=== PATIENT | female | born 1930 | race Native Hawaiian/Other Pacific Islander ===

== ENCOUNTER 2016-05-14 08:16 | Outpatient (CLI) | payer OTHER ==
[2016-05-14 09:35] LABS: POTASSIUM 3.9 mmol/L (3.6-5.2)
== END 2016-05-14 19:21 | disposition home or self-care (01) ==
LOC: LABW 08:16
PROVIDERS: Internal Medicine Cardiovascular Disease
DX: E78.4 Other hyperlipidemia (principal); Z79.899 Other long term (current) drug therapy; Z51.81 Encounter for therapeutic drug level monitoring
CPT/HCPCS: 36415; 80053; 80061

== ENCOUNTER 2017-03-26 08:07 | Outpatient (CLI) | payer OTHER | END 2017-03-26 10:10 | disposition home or self-care (01) | LOC: RESP 08:07 | DX: I10 Essential (primary) hypertension (principal); Z13.6 Encounter for screening for cardiovascular disorders | CPT/HCPCS: 93306 ==

== ENCOUNTER 2017-09-23 08:42 | Outpatient (CLI) | payer OTHER | END 2017-09-23 21:19 | disposition home or self-care (01) | LOC: LABW 08:42 | PROVIDERS: Internal Medicine Cardiovascular Disease | DX: R06.09 Other forms of dyspnea (principal); Z79.899 Other long term (current) drug therapy; Z51.81 Encounter for therapeutic drug level monitoring | CPT/HCPCS: 36415; 80048; 83880 ==

== ENCOUNTER 2017-10-24 10:04 | Outpatient (CLI) | payer OTHER | END 2017-10-24 19:29 | disposition home or self-care (01) | LOC: RAD 10:04 | DX: M54.2 Cervicalgia (principal); M25.511 Pain in right shoulder ==

== ENCOUNTER 2017-11-21 08:51 | Outpatient (CLI) | payer OTHER | END 2017-11-21 21:17 | disposition home or self-care (01) | LOC: LABW 08:51 | PROVIDERS: Internal Medicine Cardiovascular Disease | DX: E78.4 Other hyperlipidemia (principal) | CPT/HCPCS: 36415; 80061 ==

== ENCOUNTER 2018-03-14 15:15 | Emergency (ER) | payer OTHER ==
[~2018-03-14] VITALS: Ht 162.6 cm; Wt 79.8 kg
[2018-03-14 15:40] VITALS: BP 201/85; TEMP 98.7
== END 2018-03-14 17:30 | disposition home or self-care (01) ==
LOC: ED 15:15
PROC: 3E1CX8Z Irrigation of Eye using Irrigating Substance (ICD-10-PCS; principal; 2018-03-14)
DX: T15.91XA Foreign body on external eye, part unspecified, right eye, initial encounter (principal)
CPT/HCPCS: 99283

== ENCOUNTER 2018-05-08 23:46 | Outpatient (CLI) | payer OTHER ==
[2018-05-09] MEDS ORDERED: OMEPRAZOLE20 M2 PO (00:20)
[2018-05-09] MEDS ORDERED: MOBIC7.5 M1 PO (00:20)
[2018-05-09] MEDS ORDERED: SIMV20TA2 PO (00:21)
[2018-05-09] MEDS ORDERED: HYDR25TA60 PO (00:21)
[2018-05-09] MEDS ORDERED: ENALAPRIL20 MG PO (00:22)
[2018-05-09] MEDS ORDERED: METFTAB PO (00:22)
[2018-05-09] MEDS ORDERED: EC-81 ASPIRIN81 MG PO (00:23)
[2018-05-09] MEDS ORDERED: FORMULA E400 UNIT PO (00:31)
== END 2018-05-09 00:05 | disposition short-term general hospital (02) ==
LOC: AMB 23:46
DX: R07.89 Other chest pain (principal)
CPT/HCPCS: A0425; A0427

== ENCOUNTER 2018-05-09 00:07 | Emergency (ER) | payer OTHER ==
[~2018-05-09] VITALS: Ht 162.6 cm; Wt 76.2 kg
[2018-05-09] MEDS ORDERED: OMEPRAZOLE20 M2 PO (00:20)
[2018-05-09] MEDS ORDERED: MOBIC7.5 M1 PO (00:20)
[2018-05-09] MEDS ORDERED: SIMV20TA2 PO (00:21)
[2018-05-09] MEDS ORDERED: HYDR25TA60 PO (00:21)
[2018-05-09] MEDS ORDERED: METFTAB PO (00:22)
[2018-05-09] MEDS ORDERED: ENALAPRIL20 MG PO (00:22)
[2018-05-09] MEDS ORDERED: EC-81 ASPIRIN81 MG PO (00:23)
[2018-05-09] MEDS ORDERED: FORMULA E400 UNIT PO (00:31)
[2018-05-09 00:54] LABS: PLATELET COUNT 264 K/uL (152-353)
[2018-05-09 00:59] LABS: POTASSIUM 3.2 mmol/L (3.6-5.2); SODIUM 140 mmol/L (136-145)
[2018-05-09 04:02] VITALS: BP 102/50; TEMP 98.2
== END 2018-05-09 04:04 | disposition short-term general hospital (02) ==
LOC: ED 00:07
PROVIDERS: Family Medicine
DX: I48.91 Unspecified atrial fibrillation (principal); I20.8 Other forms of angina pectoris
CPT/HCPCS: 80053; 81000; 82550; 84484; 85027; 93005; 96374; 96375; 99285; J2175; J2405; J3490

== ENCOUNTER 2018-05-09 04:04 | Outpatient (CLI) | payer OTHER ==
[~2018-05-09 04:04] MED LIST: EC-81 ASPIRIN81 MG PO; ENALAPRIL20 MG PO; FORMULA E400 UNIT PO; HYDR25TA60 PO; METFTAB PO; MOBIC7.5 M1 PO; OMEPRAZOLE20 M2 PO; SIMV20TA2 PO
== END 2018-05-09 05:45 | disposition short-term general hospital (02) ==
LOC: AMB 04:04
DX: I48.91 Unspecified atrial fibrillation (principal); I20.8 Other forms of angina pectoris
CPT/HCPCS: A0425; A0427

== ENCOUNTER 2018-05-14 13:27 | Outpatient (CLI) | payer OTHER ==
[2018-05-14 13:58] LABS: POTASSIUM 3.9 mmol/L (3.6-5.2)
== END 2018-05-14 21:36 | disposition home or self-care (01) ==
LOC: LABW 13:27
PROVIDERS: Internal Medicine Cardiovascular Disease
DX: R06.02 Shortness of breath (principal); Z79.899 Other long term (current) drug therapy
CPT/HCPCS: 36415; 80048; 83880

== ENCOUNTER 2018-06-04 09:07 | Emergency (ER) | payer OTHER ==
[~2018-06-04] VITALS: Ht 162.6 cm; Wt 76.2 kg
[2018-06-04 09:40] LABS: PLATELET COUNT 259 K/uL (152-353)
[2018-06-04 09:46] LABS: POTASSIUM 3.3 mmol/L (3.6-5.2)
[2018-06-04 12:14] LABS: PARTIAL THROMBOPLASTIN TIME 26.1 SECONDS (24.5-33.6)
[2018-06-04 14:18] VITALS: BP 171/52; TEMP 98
== END 2018-06-04 14:22 | disposition home or self-care (01) ==
LOC: ED 09:07
PROVIDERS: Family Medicine
DX: R00.2 Palpitations (principal)
CPT/HCPCS: 80053; 82550; 82553; 84484; 85027; 85610; 85730; 93005; 99283

== ENCOUNTER 2019-02-23 04:44 | Observation (INO) | payer OTHER ==
[2019-02-23] VITALS (10 sets, daily range): BP systolic 128–190; BP diastolic 59–85; TEMP 97.5–98.4; Ht 162.6 cm; Wt 84.4 kg
[~2019-02-23] VITALS: Ht 162.6 cm; Wt 84.4 kg
[2019-02-23 05:15] LABS: POTASSIUM 3.5 mmol/L (3.6-5.2); SODIUM 139 mmol/L (136-145)
[2019-02-23 05:45] LABS: PARTIAL THROMBOPLASTIN TIME 31.8 SECONDS (24.5-33.6)
[2019-02-23 06:23] LABS: PLATELET COUNT 256 K/uL (152-353)
[2019-02-23] MEDS ORDERED: METO-837 PO (10:01)
[2019-02-23] MEDS ORDERED: XARELTO20 MG PO (10:07)
[2019-02-24] VITALS: BP 144/63; TEMP 98.3
[2019-02-24 04:00] VITALS: BP 148/59; TEMP 97.9
[2019-02-24 08:00] VITALS: BP 164/62; TEMP 97.5
[2019-02-24 12:00] VITALS: BP 161/62; TEMP 98.7
== END 2019-02-24 12:50 | disposition home or self-care (01) ==
LOC: ED 04:44 → MED/SURG 06:03
PROVIDERS: ADMIT Hospitalist
DX: I24.9 Acute ischemic heart disease, unspecified (principal); R07.89 Other chest pain; R06.02 Shortness of breath; I51.7 Cardiomegaly; I25.2 Old myocardial infarction
CPT/HCPCS: 36415; 80053; 82550; 83880; 84484; 85027; 85379; 85610; 85730; 86318; 93005; 99220; 99284; G0378

== ENCOUNTER 2019-02-25 11:54 | Outpatient (CLI) | payer OTHER ==
[~2019-02-25 11:54] MED LIST changes: +METO-837 PO; +XARELTO20 MG PO
== END 2019-02-25 19:13 | disposition home or self-care (01) ==
LOC: LABW 11:54
DX: Z79.899 Other long term (current) drug therapy (principal)
CPT/HCPCS: 36415; 85651

== ENCOUNTER 2019-10-23 03:12 | Inpatient (IN) | payer OTHER ==
[~2019-10-23] VITALS: Ht 162.6 cm; Wt 82.6 kg
[2019-10-23] VITALS (30 sets, daily range): BP systolic 115–205; BP diastolic 46–106; TEMP 98.2–98.8; Ht 162.6 cm; Wt 82.6 kg
[2019-10-23 03:40] LABS: POTASSIUM 3.7 mmol/L (3.6-5.2); SODIUM 139 mmol/L (136-145)
[2019-10-23 03:46] LABS: PLATELET COUNT 295 K/uL (152-353)
[2019-10-23] MEDS ORDERED: TRICOR145 M1 PO (09:43)
[2019-10-23] MEDS ORDERED: METH5TAB6 PO (16:52)
[2019-10-24] VITALS: BP 155/48; TEMP 98.4
[2019-10-24 04:00] VITALS: BP 107/57; TEMP 98.4
== END 2019-10-24 15:00 | disposition home or self-care (01) | DRG 309 ==
LOC: ED 03:17 → ICU 04:15 → MED/SURG 17:38
DX: I48.91 Unspecified atrial fibrillation (principal); N18.4 Chronic kidney disease, stage 4 (severe); I13.0 Hypertensive heart and chronic kidney disease with heart failure and stage 1 through stage 4 chronic kidney disease, or unspecified chronic kidney disease; I25.10 Atherosclerotic heart disease of native coronary artery without angina pectoris; K21.9 Gastro-esophageal reflux disease without esophagitis; E11.22 Type 2 diabetes mellitus with diabetic chronic kidney disease; I50.89 Other heart failure
CPT/HCPCS: 36415; 80053; 84439; 84443; 84484; 85027; 85379; 85610; 85730; 93005; 96365; 96372; 96375; 96376; 99285; J0153; J1650; J3490

== ENCOUNTER 2020-02-11 10:16 | Outpatient (CLI) | payer OTHER ==
[~2020-02-11 10:16] MED LIST changes: +METH5TAB6 PO; +TRICOR145 M1 PO
== END 2020-02-11 20:04 | disposition home or self-care (01) ==
LOC: LABW 10:16
DX: E05.80 Other thyrotoxicosis without thyrotoxic crisis or storm (principal); I10 Essential (primary) hypertension; E78.2 Mixed hyperlipidemia; E66.9 Obesity, unspecified; Z78.0 Asymptomatic menopausal state
CPT/HCPCS: 36415; 84439; 84443; 84445; 84481

== ENCOUNTER 2020-02-29 09:21 | Inpatient (IN) | payer OTHER ==
[~2020-02-29] VITALS: Ht 162.6 cm; Wt 80.8 kg
[2020-02-29 09:21] VITALS: BP 208/86; TEMP 98.4
[2020-02-29 09:55] LABS: POTASSIUM 3.5 mmol/L (3.6-5.2)
[2020-02-29 10:00] LABS: PLATELET COUNT 343 K/uL (152-353)
[2020-02-29 10:15] VITALS: BP 169/58
[2020-02-29 11:15] VITALS: BP 164/64
[2020-02-29 12:15] VITALS: BP 156/66; BP 198/81
[2020-02-29 14:50] VITALS: BP 190/78; TEMP 97.7; Ht 162.6 cm; Wt 80.8 kg
[2020-02-29 20:00] VITALS: BP 198/82; TEMP 99.2
[2020-03-01] VITALS: BP 156/77; TEMP 98.2
[2020-03-01 04:00] VITALS: BP 176/93; TEMP 98.1
[2020-03-01 08:00] VITALS: BP 159/87; TEMP 98.7
[2020-03-01 12:00] VITALS: BP 193/76; TEMP 98.7
[2020-03-01 12:22] LABS: POTASSIUM 3.5 mmol/L (3.6-5.2)
[2020-03-01 13:34] LABS: PLATELET COUNT 333 K/uL (152-353)
[2020-03-01 16:00] VITALS: BP 179/57; TEMP 98.4
[2020-03-01 20:00] VITALS: BP 184/56; TEMP 99.1
[2020-03-02 00:23] VITALS: BP 198/78; TEMP 98.1
[2020-03-02 04:00] VITALS: BP 169/87; TEMP 97.9
[2020-03-02 05:52] LABS: PLATELET COUNT 318 K/uL (152-353)
[2020-03-02 06:05] LABS: POTASSIUM 3.5 mmol/L (3.6-5.2)
[2020-03-02 08:00] VITALS: BP 198/78; TEMP 98
[2020-03-02 12:00] VITALS: BP 174/76; TEMP 99.1
[2020-03-02 16:00] VITALS: BP 181/64; TEMP 99.8
[2020-03-02 20:00] VITALS: BP 156/79; TEMP 98.2
[2020-03-03 00:16] VITALS: BP 198/77; TEMP 98.3
[2020-03-03 04:00] VITALS: BP 179/77; TEMP 98.9
[2020-03-03 05:16] LABS: PLATELET COUNT 348 K/uL (152-353)
[2020-03-03 05:42] LABS: POTASSIUM 3.8 mmol/L (3.6-5.2)
[2020-03-03 08:00] VITALS: BP 199/92; TEMP 97.9
[2020-03-03 12:00] VITALS: BP 187/97; TEMP 98.6
[2020-03-03 20:00] VITALS: BP 190/70; TEMP 99.9
[2020-03-04] VITALS: BP 174/85; TEMP 99.5
[2020-03-04 04:00] VITALS: BP 202/91; TEMP 99.4
[2020-03-04 05:39] LABS: PLATELET COUNT 310 K/uL (152-353)
[2020-03-04 05:53] LABS: POTASSIUM 3.3 mmol/L (3.6-5.2)
[2020-03-04 12:00] VITALS: BP 211/84; TEMP 97.8
[2020-03-04 16:00] VITALS: BP 210/83; TEMP 98.1
[2020-03-04 20:00] VITALS: BP 207/80; TEMP 98.4
[2020-03-04 23:43] VITALS: BP 159/60; TEMP 99
[2020-03-05 04:00] VITALS: BP 142/70; TEMP 98.3
[2020-03-05 05:46] LABS: PLATELET COUNT 292 K/uL (152-353)
[2020-03-05 06:05] LABS: POTASSIUM 3.4 mmol/L (3.6-5.2)
[2020-03-05 08:00] VITALS: BP 197/74; TEMP 98.5
[2020-03-05 12:20] VITALS: BP 181/79; TEMP 97.8
[2020-03-05 16:00] VITALS: BP 219/80; TEMP 99
[2020-03-05 20:00] VITALS: BP 191/52; TEMP 99.4
[2020-03-06 00:27] VITALS: BP 193/71; TEMP 98.8
[2020-03-06 04:00] VITALS: BP 188/70; TEMP 97.5
[2020-03-06 08:00] VITALS: TEMP 98.4
[2020-03-06 12:00] VITALS: BP 122/71; TEMP 98.5
[2020-03-06 16:00] VITALS: BP 168/69; TEMP 98
[2020-03-06 20:02] VITALS: BP 197/74; TEMP 98.1
[2020-03-07] VITALS: BP 185/91; TEMP 97.8
[2020-03-07 04:00] VITALS: BP 169/66; TEMP 98.5
[2020-03-07 08:00] VITALS: BP 145/82; TEMP 97.9
[2020-03-07 12:00] VITALS: BP 187/77; TEMP 98.1
[2020-03-07 16:00] VITALS: BP 174/70; TEMP 98.2
[2020-03-07 20:00] VITALS: BP 192/79; TEMP 98.6
[2020-03-08] VITALS: BP 153/64; TEMP 98.4
[2020-03-08 04:00] VITALS: BP 176/65; TEMP 98.8
[2020-03-08 05:03] LABS: PLATELET COUNT 273 K/uL (152-353)
[2020-03-08 08:00] VITALS: BP 186/72; TEMP 99.4
[2020-03-08 12:00] VITALS: BP 133/55; TEMP 98.4
[2020-03-08 16:00] VITALS: BP 164/64; TEMP 99.2
[2020-03-08 20:00] VITALS: BP 188/74; TEMP 98.6
[2020-03-09] VITALS (7 sets, daily range): BP systolic 130–190; BP diastolic 57–100; TEMP 97.8–100.7
[2020-03-09 13:02] LABS: POTASSIUM 3.7 mmol/L (3.6-5.2)
[2020-03-10 04:00] VITALS: BP 177/60; TEMP 99.7
[2020-03-10 12:00] VITALS: BP 168/69; TEMP 98.1
[2020-03-10 16:00] VITALS: BP 187/77; TEMP 98.3
[2020-03-10 20:00] VITALS: BP 159/62; TEMP 99.5
[2020-03-11] VITALS: BP 167/62; TEMP 98.3
[2020-03-11 03:59] VITALS: BP 167/75; TEMP 98.3
[2020-03-11 08:00] VITALS: BP 196/66; TEMP 97
[2020-03-11] MEDS ORDERED: CATAPRES-T0.1 MG/24 TOP (11:38)
[2020-03-11] MEDS ORDERED: MAGN400T4 PO (11:39)
[2020-03-11 12:00] VITALS: BP 154/61; TEMP 99.3
== END 2020-03-11 19:41 | DRG 65 ==
LOC: ED 09:21 → MED/SURG 12:30
PROVIDERS: Emergency Medicine Emergency Medical Services; Internal Medicine Endocrinology, Diabetes & Metabolism; ADMIT Internal Medicine
PROC: 0DH63UZ Insertion of Feeding Device into Stomach, Percutaneous Approach (ICD-10-PCS; principal; 2020-03-09)
DX: I63.512 Cerebral infarction due to unspecified occlusion or stenosis of left middle cerebral artery (principal); I13.0 Hypertensive heart and chronic kidney disease with heart failure and stage 1 through stage 4 chronic kidney disease, or unspecified chronic kidney disease; N18.4 Chronic kidney disease, stage 4 (severe); E05.80 Other thyrotoxicosis without thyrotoxic crisis or storm; I48.0 Paroxysmal atrial fibrillation; Z79.01 Long term (current) use of anticoagulants; K21.9 Gastro-esophageal reflux disease without esophagitis; E87.6 Hypokalemia; E83.42 Hypomagnesemia; E11.22 Type 2 diabetes mellitus with diabetic chronic kidney disease; I50.89 Other heart failure; R47.01 Aphasia; D63.8 Anemia in other chronic diseases classified elsewhere
CPT/HCPCS: 36415; 51702; 80048; 80053; 81000; 82550; 83605; 83735; 84439; 84443; 84484; 85027; 87040; 87635; 93005; 94760; 96360; 96375; 99284; A9576; J0132; J0360; J1200; J1650; J2001; J2060; J2270; J2370; J2405; J2704; J3475; J3480; J3490; U0003